=== PATIENT | female | born 1970 | race Asian ===

== ENCOUNTER 2021-09-06 14:03 | Emergency (ER) | payer OTHER ==
[~2021-09-06] VITALS: Ht 160 cm; Wt 59.0 kg
[2021-09-06 15:05] VITALS: BP 100/66
--- NOTE | 2021-09-06 15:06 | NUR ---
BIB FOR PAINFUL RASH ON BOTH THIGHS X 3 DAYS. WILL CONTINUE TO MONITOR THE PATIENT. WILL CONTINUE TO MONITOR THE PATIENT.
[2021-09-06] MEDS ORDERED: TRAM50TA2 PO (15:11)
[2021-09-06] MEDS ORDERED: VALA10002 PO (15:13)
--- NOTE | 2021-09-06 15:22 | NUR ---
Patient discharged to home in stable condition. Written and verbal after care instructions given. Patient verbalizes understanding of instruction.
== END 2021-09-06 15:22 | disposition home or self-care (01) ==
LOC: ER 14:11
DX: B02.9 Zoster without complications (principal); M54.50 Low back pain, unspecified